=== PATIENT | female | born 1995 | race Caucasian/White ===

== ENCOUNTER 2017-02-05 23:59 | Emergency (ER) | payer OTHER ==
[~2017-02-05] VITALS: Ht 167.6 cm; Wt 55.0 kg
[2017-02-06 00:01] VITALS: BP 129/73; PULSE 109; RESP 16; TEMP 98.6; O2SAT 98
[2017-02-06] MEDS ORDERED: TETANUS/DIPHTHERIA TOXOID ADULT 0.5 ML VIAL IM ONE (01:15)
[2017-02-06] MEDS ORDERED: BIRTH CONTROL PILLS (01:27)
[2017-02-06] MEDS ORDERED: DEPA500T3 PO (01:27)
[2017-02-06] MEDS ORDERED: FLUV100T PO (01:27)
[2017-02-06 01:47] LABS: AUTOMATED NEUTROPHIL # 3.3 TH/MM3 (1.8-7.7); BASOPHIL # 0.1 TH/MM3 (0-0.2); BASOPHIL % 1.2 % (0.0-2.0); EOSINOPHIL # 0.1 TH/MM3 (0-0.4); EOSINOPHIL % 0.9 % (0.0-4.0); HEMATOCRIT 36.4 % (35.0-46.0); HEMO FLAGS DIFF FINAL; LYMPH % 29.2 % (9.0-44.0); LYMPHOCYTE # 1.6 TH/MM3 (1.0-4.8); MEAN CELL VOLUME 75.9 FL (80.0-100.0); MEAN CORPUSCULAR HEMOGLOBIN 24.3 PG (27.0-34.0); MONO % 8.5 % (0.0-8.0); NEUT % 60.2 % (16.0-70.0); PLATELET COUNT 267 TH/MM3 (150-450); RED BLOOD COUNT 4.79 MIL/MM3 (4.00-5.30); RED CELL DISTRIBUTION WIDTH 14.9 % (11.6-17.2); WHITE BLOOD COUNT 5.6 TH/MM3 (4.0-11.0)
[2017-02-06 01:54] LABS: AMPHETAMINE, URINE NEG (NEG); BARBITURATES, URINE NEG (NEG); COCAINE, URINE NEG (NEG)
[2017-02-06 01:58] LABS: BACTERIA, URINE RARE /hpf; BLOOD, URINE NEG (NEG); COMMENT (UR) CULT NOT INDICATED; CULTURE IF INDICATED CULT NOT INDICATED; GLUCOSE,URINE NEG (NEG); KETONE, URINE TRACE mg/dL (NEG); MUCUS URINE MANY /lpf (OCC); NITRITE,URINE NEG (NEG); PH, URINE 7.5 (5.0-8.5); SQUAMOUS EPITHELIAL CELL URINE 2 /hpf (0-5); URINE COLOR YELLOW (YELLW/STRAW)
[2017-02-06 02:00] LABS: ALT (GPT) 15 U/L (9-42); ANION GAP 6 MEQ/L (5-15); AST (GOT) 11 U/L (16-38); BICARBONATE 26.7 MEQ/L (21.0-32.0); BLOOD UREA NITROGEN 9 MG/DL (7-18); CHLORIDE 106 MEQ/L (98-107); GLOMERULAR FILTRATION RATE 120 ML/MIN (>89); POTASSIUM 3.6 MEQ/L (3.5-5.1); SODIUM (NA) 139 MEQ/L (136-145)
[2017-02-06 02:02] LABS: ACETAMINOPHEN LESS THAN 2.0 MCG/ML (10.0-30.0); ALKALINE PHOSPHATASE 61 U/L (45-117); TOTAL BILIRUBIN ADULT 0.1 MG/DL (0.2-1.0)
--- NOTE | 2017-02-06 03:06 | PD ---
HPI Chief Complaint: Psychiatric Symptoms Time Seen by Provider: 02:00 Travel History International Travel<30 days: No Contact w/Intl Traveler<30days: No Traveled to known affect area: No History of Present Illness HPI Patient is a 21-year-old female presenting to the emergency department voluntarily due to suicidal ideations and depression. Patient states she cut her arm this evening not necessarily in attempt to end her life but she was in different as to whether or not she did. She states that her depression has been worsening and is not well controlled on her current medications. She states her primary doctor wanted her to have a psychiatric evaluation but it would be over month from now before she could be evaluated. She stated that she has cut herself in the past again not necessarily with the intent of committing suicide but with the indifference towards whether or not her life would continue. Patient has no physical complaints at this time. Conversation was held in private, patient's mother left the room. Patient prefers that her mother does not know the details of her depression and mental illness. PFSH Past Medical History ADHD: Yes Weight (Kg): 3 Anxiety: Yes Depression: Yes Psychiatric: Yes (BOARDERLINE PERSONALITY D/O) Tetanus Vaccination: < 5 Years Influenza Vaccination: No ?: Not Past Surgical History Surgical History: No Previous Surgery Section: No Other Surgery: Yes (THYROID BIOPSY) Social History Alcohol Use: No Tobacco Use: No Substance Use: No Allergies-Medications (Allergen,Severity, Reaction): Coded Allergies: No Known Allergies (Unverified , 02/06/17) Reported Meds & Prescriptions Reported Meds & Active Scripts Active Reported Fluvoxamine (Fluvoxamine Maleate) 100 Mg Tab 100 Mg PO HS Depakote ER (Divalproex Sodium) 500 Mg Diego 500 Mg PO DAILY [ Control Pills] Review of Systems Except as stated in HPI: all other systems reviewed are Neg Skin: Positive Other (lacerations) Psychiatric: Positive: Depression, Suicidal Ideations Physical Exam Narrative GENERAL: Thin, well-developed, alert female. Resting comfortably in no acute distress. SKIN: Focused skin assessment warm/dry. Two- 2cm superficial lacerations to the left inner forearm. No active bleeding noted. HEAD: Atraumatic. Normocephalic. EYES: Pupils equal and round. No scleral icterus. No injection or drainage. ENT: No nasal bleeding or discharge. Mucous membranes pink and moist. NECK: Trachea midline. No JVD. CARDIOVASCULAR: Regular rate and rhythm. No murmur appreciated. RESPIRATORY: No accessory muscle use. Clear to auscultation. Breath sounds equal bilaterally. GASTROINTESTINAL: Abdomen soft, non-tender, nondistended. Hepatic and splenic margins not palpable. MUSCULOSKELETAL: No obvious deformities. No clubbing. No cyanosis. No edema. NEUROLOGICAL: Awake and alert. No obvious cranial nerve deficits. Motor grossly within normal limits. Normal speech. PSYCHIATRIC: Appropriate mood and affect; insight and judgment normal. Data Data Last Documented VS Vital Signs Date Time Temp Pulse Resp B/P Pulse Ox O2 Delivery O2 Flow Rate FiO2 02/06/17 00:01 98.6 109 16 129/73 98 Orders Complete Blood Count With Diff (02/06/17 01:12) Comprehensive Metabolic Panel (02/06/17 01:12) Urinalysis - C+S If Indicated (02/06/17 01:12) Psych Screen (02/06/17 01:12) Drug Screen, Random Urine (02/06/17 01:12) Alcohol (Ethanol) (02/06/17 01:12) Salicylates (Aspirin) (02/06/17 01:12) Tylenol (Acetaminophen) (02/06/17 01:12) Wound Care (02/06/17 01:12) Tetanus/Diphtheria Tox Adult (Tetanus/Di (02/06/17 01:15) Labs Laboratory Tests Test 02/06/17 02/06/17 01:20 01:30 White Blood Count 5.6 TH/MM3 Red Blood Count 4.79 MIL/MM3 Hemoglobin 11.6 GM/DL Hematocrit 36.4 % Mean Corpuscular Volume 75.9 FL Mean Corpuscular Hemoglobin 24.3 PG Mean Corpuscular Hemoglobin 32.0 % Concent Red Cell Distribution Width 14.9 % Platelet Count 267 TH/MM3 Mean Platelet Volume 8.3 FL Neutrophils (%) (Auto) 60.2 % Lymphocytes (%) (Auto) 29.2 % Monocytes (%) (Auto) 8.5 % Eosinophils (%) (Auto) 0.9 % Basophils (%) (Auto) 1.2 % Neutrophils # (Auto) 3.3 TH/MM3 Lymphocytes # (Auto) 1.6 TH/MM3 Monocytes # (Auto) 0.5 TH/MM3 Eosinophils # (Auto) 0.1 TH/MM3 Basophils # (Auto) 0.1 TH/MM3 CBC Comment DIFF FINAL Differential Comment Sodium Level 139 MEQ/L Potassium Level 3.6 MEQ/L Chloride Level 106 MEQ/L Carbon Dioxide Level 26.7 MEQ/L Anion Gap 6 MEQ/L Blood Urea Nitrogen 9 MG/DL Creatinine 0.64 MG/DL Estimat Glomerular Filtration 120 ML/MIN Rate Random Glucose 106 MG/DL Calcium Level 8.6 MG/DL Total Bilirubin 0.1 MG/DL Aspartate Amino Transf 11 U/L (AST/SGOT) Alanine Aminotransferase 15 U/L (ALT/SGPT) Alkaline Phosphatase 61 U/L Total Protein 7.4 GM/DL Albumin 3.5 GM/DL Salicylates Level LESS THAN 1.7 MG/DL Acetaminophen Level LESS THAN 2.0 MCG/ML Ethyl Alcohol Level LESS THAN 3 MG/DL Urine Color YELLOW Urine Turbidity HAZY Urine pH 7.5 Urine Specific [place] 1.025 Urine Protein TRACE mg/dL Urine Glucose (UA) NEG mg/dL Urine Ketones TRACE mg/dL Urine Occult Blood NEG Urine Nitrite NEG Urine Bilirubin NEG Urine Urobilinogen LESS THAN 2.0 MG/DL Urine Leukocyte Esterase TRACE Urine RBC 1 /hpf Urine WBC 2 /hpf Urine Squamous Epithelial 2 /hpf Cells Urine Bacteria RARE /hpf Urine Mucus MANY /lpf Microscopic Urinalysis Comment CULT NOT INDICATED Urine Opiates Screen NEG Urine Barbiturates Screen NEG Urine Amphetamines Screen NEG Urine Benzodiazepines Screen POS Urine Cocaine Screen NEG Urine Cannabinoids Screen NEG MDM Medical Decision Making Medical Screen Exam Complete: Yes Emergency Medical Condition: Yes Interpretation(s) Laboratory Tests Test 02/06/17 02/06/17 01:20 01:30 White Blood Count 5.6 TH/MM3 Red Blood Count 4.79 MIL/MM3 Hemoglobin 11.6 GM/DL Hematocrit 36.4 % Mean Corpuscular Volume 75.9 FL Mean Corpuscular Hemoglobin 24.3 PG Mean Corpuscular Hemoglobin 32.0 % Concent Red Cell Distribution Width 14.9 % Platelet Count 267 TH/MM3 Mean Platelet Volume 8.3 FL Neutrophils (%) (Auto) 60.2 % Lymphocytes (%) (Auto) 29.2 % Monocytes (%) (Auto) 8.5 % Eosinophils (%) (Auto) 0.9 % Basophils (%) (Auto) 1.2 % Neutrophils # (Auto) 3.3 TH/MM3 Lymphocytes # (Auto) 1.6 TH/MM3 Monocytes # (Auto) 0.5 TH/MM3 Eosinophils # (Auto) 0.1 TH/MM3 Basophils # (Auto) 0.1 TH/MM3 CBC Comment DIFF FINAL Differential Comment Sodium Level 139 MEQ/L Potassium Level 3.6 MEQ/L Chloride Level 106 MEQ/L Carbon Dioxide Level 26.7 MEQ/L Anion Gap 6 MEQ/L Blood Urea Nitrogen 9 MG/DL Creatinine 0.64 MG/DL Estimat Glomerular Filtration 120 ML/MIN Rate Random Glucose 106 MG/DL Calcium Level 8.6 MG/DL Total Bilirubin 0.1 MG/DL Aspartate Amino Transf 11 U/L (AST/SGOT) Alanine Aminotransferase 15 U/L (ALT/SGPT) Alkaline Phosphatase 61 U/L Total Protein 7.4 GM/DL Albumin 3.5 GM/DL Salicylates Level LESS THAN 1.7 MG/DL Acetaminophen Level LESS THAN 2.0 MCG/ML Ethyl Alcohol Level LESS THAN 3 MG/DL Urine Color YELLOW Urine Turbidity HAZY Urine pH 7.5 Urine Specific [place] 1.025 Urine Protein TRACE mg/dL Urine Glucose (UA) NEG mg/dL Urine Ketones TRACE mg/dL Urine Occult Blood NEG Urine Nitrite NEG Urine Bilirubin NEG Urine Urobilinogen LESS THAN 2.0 MG/DL Urine Leukocyte Esterase TRACE Urine RBC 1 /hpf Urine WBC 2 /hpf Urine Squamous Epithelial 2 /hpf Cells Urine Bacteria RARE /hpf Urine Mucus MANY /lpf Microscopic Urinalysis Comment CULT NOT INDICATED Urine Opiates Screen NEG Urine Barbiturates Screen NEG Urine Amphetamines Screen NEG Urine Benzodiazepines Screen POS Urine Cocaine Screen NEG Urine Cannabinoids Screen NEG Vital Signs Date Time Temp Pulse Resp B/P Pulse Ox O2 Delivery O2 Flow Rate FiO2 02/06/17 00:01 98.6 109 16 129/73 98 Differential Diagnosis Laceration versus abrasion versus suicidal ideations versus depression versus psychosis versus other Narrative Course Patient is a 21-year-old female presenting voluntarily for psychiatric evaluation due to worsening depression and suicidal ideations. Labs reviewed and are unremarkable. Please see procedure report for laceration repair. Patient is medically clear for psychiatric evaluation at this time. Procedures Procedure Narrative LACERATION LOCATION: Left inner forearm LENGTH: 2 cm NUMBER OF STITCHES/ILDA: 3 stitches REPAIR: The area of the laceration was prepped with Betadine and sterilely draped. The laceration was infiltrated with 1% lidocaine. The wound was copiously irrigated and explored without evidence of foreign body, tendon injury or neurovascular injury. The wound was closed using 4-0 proline. This was a 1 layer repair. A sterile dressing was applied. The patient was advised to keep the dressing clean and dry. Patient tolerated the procedure well. LACERATION LOCATION: Left inner forearm LENGTH: 2 cm NUMBER OF STITCHES/ILDA: 3 stitches REPAIR: The area of the laceration was prepped with Betadine and sterilely draped. The laceration was infiltrated with 1% lidocaine. The wound was copiously irrigated and explored without evidence of foreign body, tendon injury or neurovascular injury. The wound was closed using 4-0 Prolene. This was a 1 layer repair. A sterile dressing was applied. The patient was advised to keep the dressing clean and dry. Patient tolerated the procedure well. Diagnosis Primary Impression: Medical clearance for psychiatric admission Additional Impressions: Laceration of arm, left, multiple sites Qualified Code: S41.112A - Laceration of arm, left, multiple sites, initial encounter Depression with suicidal ideation Condition: Stable Sandra Giron Feb 06, 2017 03:06
[2017-02-06 07:05] VITALS: BP 112/60; PULSE 87; RESP 17; O2SAT 98
--- NOTE | 2017-02-06 14:16 | PD ---
History of Present Illness Chief Complaint: Psychiatric Symptoms Time Seen by Provider: 13:30 Travel History International Travel<30 Days: No Contact w/Intl Traveler<30days: No Known affected area: No Legal Status Legal Status: Voluntary History of Present Illness: History of Present Illness HPI Patient is a 21-year-old female with reported history of depression, anxiety, OCD, ADD, borderline personality disorder presenting to the emergency department voluntarily for psychiatric evaluation. She engaged in SIB last night by cutting her arms. She states she cut her arm not necessarily in attempt to end her life but she was in different as to whether or not she did and that she had written 2 suicide notes " just in case she went too far". She states that her depression has been worsening and is not well controlled on her current medications although she has been medication compliant. Her outpatient psychiatrist Dr. Mason has made some changes to her medications including initiating Depakote. She has presented no behavioral concerns or suicidality while here in [facility] [place] [facility]. Patient is seen in main ED. She is a thin female with short brown hair. Maintaining basic hygiene. She is dressed casually. Speech is clear and logical , goal directed with normal rate, rhythm and tone. Her thoughts are clear and organized and there is no indication that she is experiencing any hallucinations , delusions or paranoia. There is no toshia or hypomania although she reports intrusive thoughts. Mood is described as depressed with increase sleep, and decrease appetite but states that she has struggled with an eating disorder most of her life. She does not identify any recent stressors . Symptoms have been present for more that 6 months. She began to engage in SIB at the beginning of the year. At present she denies any suicidal or homicidal ideation , intent or plan. I have offered her the opportunity to be admitted to [facility] for a medication evaluation but she declines as she is looking for counseling services and wants her outpatient provider to manage her medication. PFSH Past Medical History ADHD: Yes Weight (Kg): 3 Anxiety: Yes Depression: Yes Psychiatric: Yes (BOARDERLINE PERSONALITY D/O) Tetanus Vaccination: < 5 Years Influenza Vaccination: No ?: Not Past Surgical History Surgical History: No Previous Surgery Section: No Other Surgery: Yes (THYROID BIOPSY) Psychiatric History Psychiatric History Hx Psychiatric Treatment: HX OF DEPRESSION, ADHD AND BIPOLAR D/O, OCD , borderline personality disorder History of Inpatient Treatment: No Guns or firearms in home: No Social History Single female. Completed 12 grade. Lives with father and mother. Hx Alcohol Use: No Hx Tobacco Use: No Hx Substance Use: No Hx of Substance Use Treatment: No Family Psychiatric History None reported Allergies-Medications (Allergen,Severity, Reaction): Coded Allergies: No Known Allergies (Unverified , 02/06/17) Reported Meds & Prescriptions Reported Meds & Active Scripts Active Reported Fluvoxamine (Fluvoxamine Maleate) 100 Mg Tab 100 Mg PO HS Depakote ER (Divalproex Sodium) 500 Mg Diego 500 Mg PO DAILY [ Control Pills] Review of Systems Except as stated in HPI: all other systems reviewed are Neg Exam Alert: Yes [place]: Person (ox4) Mood: Calm, Depressed Affect: Appropriate Speech: Clear, Logical Eye Contact: Normal Memory Intact: Comment (No impairment) Hallucinations: Other (negative) Delusions: No Suicidal: Ideation (negative) Homicidal: Ideation (negative) Insight/Judgement Fair. Not impaired. MDM Medical Decision Making Medical Record Reviewed: Yes Assessment/Plan 21 year old female on a voluntary basis who cut her wrist last evening as a coping mechanism. She denies she had intent to kill herself but she wrote 2 notes " just in case". The patient at this time is denying any suicidal intent . She presents symptoms indicative of BPD including emotional instability, feelings of worthlessness, insecurity, impulsivity, impaired social relationships, engages in self harm,and persistent thoughts of suicide. She declines admission for medication evaluation and does not meet criteria for involuntary hospitalization. She will follow up with Dr. Mason as well as with counseling. Cleared from psychiatry for discharge Orders Complete Blood Count With Diff (02/06/17 01:12) Comprehensive Metabolic Panel (02/06/17 01:12) Urinalysis - C+S If Indicated (02/06/17 01:12) Psych Screen (02/06/17 01:12) Drug Screen, Random Urine (02/06/17 01:12) Alcohol (Ethanol) (02/06/17 01:12) Salicylates (Aspirin) (02/06/17 01:12) Tylenol (Acetaminophen) (02/06/17 01:12) Wound Care (02/06/17 01:12) Tetanus/Diphtheria Tox Adult (Tetanus/Di (02/06/17 01:15) Diet Regular Basic (02/06/17 Breakfast) Results Vital Signs Date Time Temp Pulse Resp B/P Pulse Ox O2 Delivery O2 Flow Rate FiO2 02/06/17 07:05 87 17 112/60 98 Room Air 02/06/17 00:01 98.6 109 16 129/73 98 Laboratory Tests Test 02/06/17 02/06/17 01:20 01:30 White Blood Count 5.6 Red Blood Count 4.79 Hemoglobin 11.6 Hematocrit 36.4 Mean Corpuscular Volume 75.9 Mean Corpuscular Hemoglobin 24.3 Mean Corpuscular Hemoglobin 32.0 Concent Red Cell Distribution Width 14.9 Platelet Count 267 Mean Platelet Volume 8.3 Neutrophils (%) (Auto) 60.2 Lymphocytes (%) (Auto) 29.2 Monocytes (%) (Auto) 8.5 Eosinophils (%) (Auto) 0.9 Basophils (%) (Auto) 1.2 Neutrophils # (Auto) 3.3 Lymphocytes # (Auto) 1.6 Monocytes # (Auto) 0.5 Eosinophils # (Auto) 0.1 Basophils # (Auto) 0.1 CBC Comment DIFF FINAL Differential Comment Sodium Level 139 Potassium Level 3.6 Chloride Level 106 Carbon Dioxide Level 26.7 Anion Gap 6 Blood Urea Nitrogen 9 Creatinine 0.64 Estimat Glomerular Filtration 120 Rate Random Glucose 106 Calcium Level 8.6 Total Bilirubin 0.1 Aspartate Amino Transf 11 (AST/SGOT) Alanine Aminotransferase 15 (ALT/SGPT) Alkaline Phosphatase 61 Total Protein 7.4 Albumin 3.5 Salicylates Level LESS THAN 1.7 Acetaminophen Level LESS THAN 2.0 Ethyl Alcohol Level LESS THAN 3 Urine Color YELLOW Urine Turbidity HAZY Urine pH 7.5 Urine Specific [place] 1.025 Urine Protein TRACE Urine Glucose (UA) NEG Urine Ketones TRACE Urine Occult Blood NEG Urine Nitrite NEG Urine Bilirubin NEG Urine Urobilinogen LESS THAN 2.0 Urine Leukocyte Esterase TRACE Urine RBC 1 Urine WBC 2 Urine Squamous Epithelial 2 Cells Urine Bacteria RARE Urine Mucus MANY Microscopic Urinalysis Comment CULT NOT INDICATED Urine Opiates Screen NEG Urine Barbiturates Screen NEG Urine Amphetamines Screen NEG Urine Benzodiazepines Screen POS Urine Cocaine Screen NEG Urine Cannabinoids Screen NEG Diagnosis Primary Impression: Borderline personality disorder Additional Impression: Medical clearance for psychiatric admission Psychiatrically Cleared: Yes Med/ Other Pt Specific Info: No Change to Meds Disposition: 01 DISCHARGE HOME Condition: Stable Problem Qualifiers Maddison Snow Feb 06, 2017 14:16
== END 2017-02-06 16:45 | disposition home or self-care (01) ==
LOC: NEPD 23:59 → NEPB 02-06 16:45
DX: F60.3 Borderline personality disorder (principal); F32.9 Major depressive disorder, single episode, unspecified; S51.812A Laceration without foreign body of left forearm, initial encounter; X78.9XXA Intentional self-harm by unspecified sharp object, initial encounter; F41.9 Anxiety disorder, unspecified; F42.9 Obsessive-compulsive disorder, unspecified
CPT/HCPCS: 12002; 80053; 80307; 81001; 85025